=== PATIENT | male | born 1990 | race African-American/Black ===

== ENCOUNTER 2016-05-25 21:08 | Emergency (ER) | payer OTHER ==
[2016-05-25] MEDS ORDERED: Mag-Al Plus 1200 MG/1200 MG/120 MG/30 ML UDCUP ONE (21:36)
[2016-05-25] MEDS ORDERED: Lidocaine Viscous Sol 2% 15 ml UD Cup ONE (21:36)
--- NOTE | 2016-05-25 21:53 | RAD ---
AP VIEW OF THE CHEST: 05/25/16 INDICATION: Chest pain. IMPRESSION: No acute cardiopulmonary abnormality. COMMENTS: No comparisons are available. The lungs are clear. Cardiomediastinal silhouette is within normal jones its. No acute osseous abnormality is evident. POS: [facility]
== END 2016-05-25 21:57 | disposition home or self-care (01) ==
LOC: NAV ERS 21:08
DX: R07.89 Other chest pain (principal)
CPT/HCPCS: 71010; 93005

== ENCOUNTER → 2017-02-18 | Emergency (ER) | payer OTHER ==
[~2017-02-18] MED LIST: Ibuprofen 800 MG TAB ONE
== END ==
LOC: NAV ERS 19:40
DX: M54.5 Low back pain (principal)
CPT/HCPCS: 99283

== ENCOUNTER 2018-05-06 18:18 | Emergency (ER) | payer MEDICARE, MEDICAID ==
[2018-05-06] MEDS ORDERED: Acetaminophen 500 MG TAB ONE (19:13)
== END 2018-05-06 19:17 | disposition home or self-care (01) ==
LOC: NAV ERS 18:18
DX: H65.01 Acute serous otitis media, right ear (principal); E66.9 Obesity, unspecified; R73.03 Prediabetes
CPT/HCPCS: 99282

== ENCOUNTER 2021-10-21 13:49 | Emergency (ER) | payer MEDICARE | END 2021-10-21 14:25 | disposition home or self-care (01) | LOC: NAV ERS 13:49 | DX: L02.11 Cutaneous abscess of neck (principal); I10 Essential (primary) hypertension; Z79.899 Other long term (current) drug therapy | CPT/HCPCS: 99283 ==

== ENCOUNTER 2022-05-28 11:02 | Emergency (ER) | payer MEDICARE, OTHER ==
[2022-05-28 11:39] LABS: #Basophils 0.2 thou/uL (0.0-0.2); #Eosinphils 0.5 thou/uL (0.0-0.7); #Lymphocytes 2.1 thou/uL (1.20-3.40); #Monocytes 0.6 thou/uL (0.11-0.59); #Neutrophils 4.1 thou/uL (1.40-6.50); %Basophils 2.1 % (0.0-1.0); %Eosinophils 6.8 % (0.0-10.0); %Lymphocytes 28.2 % (21.0-51.0); %Neutrophils 54.9 % (42.0-75.0); Mean Corpuscular HGB CONC 30.7 g/dL (32.0-36.0); Mean Corpuscular Hemoglobin 27.7 pg (27.0-31.0); Mean Corpuscular Volume 90.1 fl (78.0-98.0); Mean Platelet Volume 8.1 fL (7.4-10.4); Platelet Count 207 10x3/uL (130-400); RBC Distribution Width 11.8 % (11.5-14.5); Red Blood Cell (RBC) Count 4.69 mill/uL (4.70-6.10); White Blood Cell (WBC) Count 7.5 10x3/uL (4.8-10.8)
[2022-05-28] MEDS ORDERED: Sodium Chloride 0.9% 100 ML ONE ×2 (11:50→12:53)
[2022-05-28] MEDS ORDERED: Sodium Chloride 0.9% 1,000 ML ONE (11:50)
[2022-05-28] MEDS ORDERED: Thiamine HCl 200 MG/2 ML VIAL ONE ×2 (11:50→12:52)
[2022-05-28] MEDS ORDERED: Ondansetron PF 4 MG/2 ML Vial ONE (11:50)
[2022-05-28 11:52] LABS: ALT (SGPT) 44 U/L (8-55); AST (SGOT) 22 U/L (5-34); Albumin 4.6 g/dL (3.5-5.0); Alkaline Phosphatase 62 U/L (40-110); Anion Gap 22 mmol/L (10-20); BUN (Urea Nitrogen) 79 mg/dL (8.9-20.6); Bilirubin, Total 0.5 mg/dL (0.2-1.2); Calc. Creatinine Clearance 0 mL/min (70-130); Calcium 10.4 mg/dL (7.8-10.44); Carbon Dioxide 19 mmol/L (22-29); Chloride 105 mmol/L (98-107); Estimated GFR 14; Globulin 3.4 g/dL (2.4-3.5); Glucose 102 mg/dL (70-105); Lipase 178 U/L (8-78); Sodium 141 mmol/L (136-145)
[2022-05-28] MEDS ORDERED: Dextrose 5 %-0.45 % NaCl 1,000 ML ONE (14:53)
== END 2022-05-28 17:30 | disposition short-term general hospital (02) ==
LOC: NAV ERS 11:02
DX: R11.10 Vomiting, unspecified (principal); E86.0 Dehydration; K85.90 Acute pancreatitis without necrosis or infection, unspecified; N28.9 Disorder of kidney and ureter, unspecified; I10 Essential (primary) hypertension; Z79.899 Other long term (current) drug therapy
CPT/HCPCS: 36415; 74177; 80053; 83605; 83690; 85025; 96361; 96365; 96375; J2405; J3411; J7042; J7050

== ENCOUNTER 2022-11-02 07:20 | Emergency (ER) | payer MEDICARE, MEDICAID ==
[2022-11-02 07:39] LABS: Bilirubin Small (Negative); Blood, Urine Negative (Negative); Clarity Clear (Clear); Glucose, Urine (Dipstick) Negative (Negative); Ketone, Urine Negative (Negative); Leukocyte Negative (Negative); Nitrite Negative (Negative); Protein, Urine (Dipstick) Negative (Neg-Trace); pH, Urine 6.5 (5.0-9.0)
[2022-11-02 07:55] LABS: Bacteria/HPF Rare-Few HPF (None Seen); CAUTI Indications for Culture Dysuria,urgency,freq; RBC/HPF 0-3 HPF (0-3); Squamous Epithelial None Seen HPF (0-3); WBC/HPF None Seen HPF (0-3)
[2022-11-02 07:57] LABS: Urine Culture Reflex No No
[2022-11-03 12:05] LABS: Chlam.trachomatis by PCR,Urine Not Detected (NotDetected); GC N.gonorrhoeae PCR,UrineVOID Not Detected (NotDetected)
== END 2022-11-02 08:38 | disposition home or self-care (01) ==
LOC: NAV ERS 07:20
DX: R30.0 Dysuria (principal); I10 Essential (primary) hypertension; Z79.899 Other long term (current) drug therapy
CPT/HCPCS: 81001; 87491; 87591; 99283